=== PATIENT | female | born 1985 | race American Indian/Alaskan Native ===

== ENCOUNTER 2017-09-30 11:00 | Outpatient (CLI) | payer MEDICAID | END 2017-09-30 11:01 | disposition home or self-care (01) | LOC: SLR 11:00 | PROVIDERS: ATTEND Specialist | DX: G47.30 Sleep apnea, unspecified (principal) | CPT/HCPCS: G0399 ==

== ENCOUNTER 2018-10-19 11:00 | Outpatient (CLI) | payer MEDICAID | END 2018-10-19 11:01 | disposition home or self-care (01) | LOC: SLR 11:00 | PROVIDERS: ATTEND Otolaryngology | DX: G47.33 Obstructive sleep apnea (adult) (pediatric) (principal); R40.0 Somnolence; R06.83 Snoring | CPT/HCPCS: 95810 ==

== ENCOUNTER 2018-10-26 11:00 | Outpatient (CLI) | payer MEDICAID | END 2018-10-26 11:01 | disposition home or self-care (01) | LOC: SLR 11:00 | PROVIDERS: ATTEND Otolaryngology | DX: G47.31 Primary central sleep apnea (principal); G47.33 Obstructive sleep apnea (adult) (pediatric) | CPT/HCPCS: 95811 ==

== ENCOUNTER 2019-01-26 06:09 | Day surgery (SDC) | payer MEDICAID ==
[2019-01-26] MEDS ORDERED: NACL 0.9% 1000 ML 1,000 ML IV SCH (07:00)
--- NOTE | 2019-01-26 07:25 | Anesthesia Consultation ---
Anesthesia Consult and Med Hx Date of service: 01/26/19 - Airway Anesthetic Teeth Evaluation: Good ROM Head & Neck: Adequate Mental/Hyoid Distance: Adequate Mallampati Class: Class III Intubation Access Assessment: Possibly Difficult - Pre-Operative Health Status ASA Pre-Surgery Classification: ASA3 Proposed Anesthetic Plan: MAC - Pulmonary Hx Smoking: Yes (quit smoking 18') Hx Sleep Apnea: Yes (uses CPAP) - Cardiovascular System Hx Hypertension: Yes - Gastrointestinal Hx Gastroesophageal Reflux Disease: Yes - Other Systems Hx Obesity: Yes (BMI 65.6)
--- NOTE | 2019-01-26 07:26 | Anesthesia Day of Surgery ---
Anesthesia Day of Surgery - Day of Surgery Patient Examined: Yes Patient H&P Reviewed: Yes Patient is NPO: Yes
[2019-01-26] MEDS ORDERED: WATER FOR IRRIG STERILE ONE (07:28)
[2019-01-26] MEDS ORDERED: WATER FOR IRRIG STERILE IR ONE (07:28)
[2019-01-26] MEDS ORDERED: DIPRIVAN 10 MG/ML IV ONE (07:39)
[2019-01-26] MEDS ORDERED: XYLOCAINE 2% INFILTRATI ONE (07:40)
[2019-01-26 08:24] VITALS: BP 115/74
== END 2019-01-26 06:10 | disposition home or self-care (01) ==
LOC: GIO 06:09
PROVIDERS: ATTEND Specialist
DX: K29.70 Gastritis, unspecified, without bleeding (principal); K44.9 Diaphragmatic hernia without obstruction or gangrene; K30 Functional dyspepsia; E66.01 Morbid (severe) obesity due to excess calories; I10 Essential (primary) hypertension; G47.30 Sleep apnea, unspecified; K21.9 Gastro-esophageal reflux disease without esophagitis; F17.210 Nicotine dependence, cigarettes, uncomplicated; Z68.44 Body mass index [BMI] 60.0-69.9, adult; Z90.49 Acquired absence of other specified parts of digestive tract; Z98.84 Bariatric surgery status; Z88.0 Allergy status to penicillin; Z79.899 Other long term (current) drug therapy; Z98.890 Other specified postprocedural states; Z98.891 History of uterine scar from previous surgery
CPT/HCPCS: 43235; 81025; J2704; J7030

== ENCOUNTER 2019-03-09 05:52 | Inpatient (IN) | payer MEDICAID ==
--- NOTE | 2019-03-08 14:55 | Anesthesia Consultation ---
Anesthesia Consult and Med Hx Date of service: 03/08/19 - Airway Anesthetic Teeth Evaluation: Good ROM Head & Neck: Adequate Mental/Hyoid Distance: Adequate Mallampati Class: Class I Intubation Access Assessment: Probably Good - Pulmonary Exam CTA: Yes - Cardiac Exam Cardiac Exam: RRR - Pre-Operative Health Status ASA Pre-Surgery Classification: ASA3 Proposed Anesthetic Plan: General - Pulmonary Hx Smoking: Yes (former smoker quit 1yr) Hx Respiratory Symptoms: No Hx Sleep Apnea: Yes (compliant with CPAP) - Cardiovascular System Hx Hypertension: Yes Hx Heart Attack/AMI: No Hx Percutaneous Transluminal Coronary Angioplasty (PTCA): No Hx Cardia Arrhythmia: No - Central Nervous System CVA: No Hx Back Pain: Yes Hx Psychiatric Problems: No - Gastrointestinal Hx Gastroesophageal Reflux Disease: Yes (well controlled) - Endocrine Hx Renal Disease: No Hx Liver Disease: No Hx Insulin Dependent Diabetes: No Hx Non-Insulin Dependent Diabetes: No Hx Thyroid Disease: No - Other Systems Hx Alcohol Use: Yes (Occas) Hx Cancer: No Hx Obesity: Yes (BMI 68) - Additional Comments Anesthesia Medical History Comments: No hx anesthetic complications. Neg ST 03/2018.
[2019-03-09] MEDS ORDERED: CLEOCIN 600 MG/50 mL 600 MG/50 ML BAG IV NR (06:00)
[2019-03-09] MEDS ORDERED: NACL 0.9% IV SCH (06:00)
[2019-03-09] MEDS ORDERED: GENTAMICIN IV SCH ×2 (06:00)
[2019-03-09] MEDS ORDERED: FLAGYL 500 MG/100 ML 500 MG/100 ML BAG IV NR (06:00)
[2019-03-09] MEDS ORDERED: NACL BACTERIOSTATIC INFILTRATI ONE (06:43)
[2019-03-09] MEDS ORDERED: MARCAINE-EPI 0.5%-1:200,000 INFILTRATI ONE ×2 (06:58→07:47)
[2019-03-09] MEDS ORDERED: XYLOCAINE 1% 20 mL ONE (06:58)
[2019-03-09] MEDS: LACTATED RINGERS 1,000 ML IV SCH ×3 (07:00→21:13)
[2019-03-09] MEDS ORDERED: ZEMURON IV ONE ×2 (07:10)
[2019-03-09] MEDS ORDERED: DIPRIVAN 10 MG/ML IV ONE ×2 (07:10→07:11)
[2019-03-09] MEDS ORDERED: DILAUDID ONE (07:10)
[2019-03-09] MEDS ORDERED: XYLOCAINE MPF 2% ONE ×2 (07:10)
[2019-03-09] MEDS ORDERED: SUBLIMAZE ONE ×2 (07:11→09:48)
[2019-03-09] MEDS ORDERED: VERSED IV NR (07:13)
[2019-03-09] MEDS ORDERED: PEPCID IV NR (07:14)
[2019-03-09] MEDS ORDERED: BRIDION IV ONE ×2 (07:15)
--- NOTE | 2019-03-09 07:18 | Anesthesia Day of Surgery ---
Anesthesia Day of Surgery - Day of Surgery Patient Examined: Yes Patient H&P Reviewed: Yes Patient is NPO: Yes
[2019-03-09] MEDS ORDERED: ZOFRAN IV PRN ×2 (07:24→07:37)
[2019-03-09] MEDS ORDERED: NORCO PO PRN (07:37)
[2019-03-09] MEDS ORDERED: MORPHINE IV PRN (07:37)
[2019-03-09] MEDS ORDERED: REGLAN IV PRN (07:37)
[2019-03-09] MEDS ORDERED: APRESOLINE IV PRN (07:37)
[2019-03-09] MEDS ORDERED: NACL 0.9% IR ONE ×2 (07:47)
[2019-03-09] MEDS ORDERED: XYLOCAINE 1% 20 mL INFILTRATI ONE (07:47)
[2019-03-09] MEDS ORDERED: LOVENOX SUB-Q NR (08:00)
[2019-03-09] MEDS ORDERED: LEVAQUIN 500MG/100ML 500 MG/100 ML BAG IV NR (08:00)
[2019-03-09] MEDS ORDERED: TRANSDERM-SCOP TD SCH (08:00)
[2019-03-09] MEDS ORDERED: LACTATED RINGERS 1,000 ML IV SCH (08:00)
[2019-03-09] MEDS ORDERED: QUELICIN ONE (08:30)
[2019-03-09] MEDS ORDERED: DECADRON ONE (08:35)
[2019-03-09] MEDS ORDERED: PHENYLEPHRINE/NS Syringe 1,000 MCG/10 ML IV ONE (08:54)
[2019-03-09] MEDS ORDERED: BLOXIVERZ ONE (09:09)
[2019-03-09] MEDS ORDERED: ROBINUL ONE (09:09)
[2019-03-09] MEDS ORDERED: CLORPACTIN WCS-90 IR ONE (09:22)
[2019-03-09] MEDS: SUBLIMAZE IV PRN ×2 (10:08→10:17)
[2019-03-09] MEDS: MYLICON PO PRN ×2 (10:40→16:03)
[2019-03-09] MEDS ORDERED: MYLICON ONE (10:41)
--- NOTE | 2019-03-09 11:54 | Post Anesthesia Evaluation ---
- Post Anesthesia Evaluation Patient Participated: Yes Airway Patent: Yes Stable Respiratory Function: Yes Nausea/Vomiting: No Temp > 96.8F: Yes Pain Manageable: Yes Adequeate Hydration: Yes Anesthesia Complications: No
[2019-03-09] MEDS: TORADOL IV SCH ×3 (12:19→21:05)
--- NOTE | 2019-03-09 14:05 | Operative Report ---
SURGEON: Valdemar Mtz M.D. PHYSICAL SECURITY SPECIALIST: Karen Amado M.D. Fellow; Chai Whitten M.D., [facility]. PREOPERATIVE DIAGNOSES: Super morbid obesity, body mass index 70 kilograms per meter squared. POSTOPERATIVE DIAGNOSES: Super morbid obesity, body mass index 70 kilograms per meter squared. OPERATION: 1. Laparoscopic sleeve gastrectomy. 2. Laparoscopic hiatal hernia repair. 3. Lysis of adhesions. ANESTHESIA: General endotracheal anesthesia. COMPLICATIONS: None. BLEEDING: Less than 10 mL. SPECIMENS: Gastric remnant. INDICATIONS: The patient is a 34-year-old female with a history of super morbid obesity. She has undergone preoperative bariatric workup and presents for her planned operation. The risks, complications and alternatives were explained to the patient and informed consent was obtained. DESCRIPTION OF PROCEDURE: The patient was brought to the operating suite where she was placed in the supine position and underwent general endotracheal intubation. She received preoperative antibiotics and DVT prophylaxis. She was prepped and draped in the usual sterile fashion and then a timeout was called to ensure proper patient, indication and operation. Local analgesia was injected into the left upper quadrant with a small stab incision and insertion of a Veress needle. Insufflation pressures were achieved to 18 mmHg. Intraabdominal access was obtained via left lateral region of the abdomen with a 5 mm optical trocar. On intraabdominal view, there was no injury from the Veress needle. She had adhesions of the omentum to the falciform ligament mostly in the foregut region from her prior cholecystectomy. Under direct visualization, we were able to place an additional 5 mm ports in the right lateral and left lateral quadrant. Of note, we did have to use long trocars. The adhesions were taken down with the LigaSure device and then a 15 mm trocar was placed above the umbilicus under direct visualization. A subxiphoid 5-mm port was then placed and the patient was repositioned in steep reverse Trendelenburg after insertion of liver retractor. She had a very large floppy stomach along with a limited domain from her abdominal girth, so it was a difficult exposure. The angle of His was dissected free and a small esophageal fat pad was removed. She had a very small hiatal hernia that was dissected free, which revealed left and right marlys. After this, the greater curvature of the stomach was from the gastrocolic ligament using the LigaSure device to fully mobilize the stomach posteriorly as well as about 6 cm antegrade from the duodenum. Anesthesia placed a 40-Kyrgyz bougie for calibration and then a sleeve gastrectomy was then performed utilizing several staple loads. The insufflation pressures were decreased and the staple lines were cauterized after each fire load. After this, an anterior cruroplasty was done with interrupted 0 Ethibond suture. The gastric remnant was removed from the supraumbilical port site. I did have to widen this as she has quite large stomach in order for it to be removed from the intraabdominal cavity. The stomach did tear and open upon removal. A liter of normal saline was instilled into the left and right upper quadrant to help with postoperative gas pain and then the fascia of the midline port was closed with a #1 PDS in a [id number] fashion. The wound was irrigated thoroughly with Chlorapectin solution and then all the wounds were closed with 4-0 Monocryl. Sterile bandages were placed over top. Counts were correct. The patient was then extubated and left the operating room in stable condition. FINDINGS: A large stomach, small hiatal hernia and adhesions from her prior operation. JOB# [id number] RUSS/LENIN MORALES
[2019-03-09] MEDS: DILAUDID IV PRN (21:24)
[2019-03-10] MEDS: TORADOL IV SCH ×2 (05:27→08:59)
[2019-03-10 06:05] LABS: Basophils % (Auto) 0.1 % (0.0-1.8); Hematocrit 27.4 % (30.3-42.9); Lymphocytes # (Auto) 1.5 K/mm3 (1.2-5.4); Lymphocytes % (Auto) 9.4 % (13.4-35.0); Mean Corpuscular HGB Conc 33 % (30-34); Mean Corpuscular Volume 86 fl (79-97); Monocytes # (Auto) 1.3 K/mm3 (0.0-0.8); Platelet Count 329 K/mm3 (140-440); Red Blood Count 3.19 M/mm3 (3.65-5.03); Red Cell Distribution Width 14.7 % (13.2-15.2)
[2019-03-10 06:22] LABS: BUN/Creatinine Ratio 11; Blood Urea Nitrogen 9 mg/dL (7-17); Calcium 8.9 mg/dL (8.4-10.2); Hemolysis Index 1
[2019-03-10] MEDS: DILAUDID IV PRN (06:29)
--- NOTE | 2019-03-10 07:31 | Discharge Summary ---
Providers - Providers Date of Admission: 03/09/19 07:37 Date of discharge: 03/10/19 Attending physician: SUPA MTZ Primary care physician: JIA MILLER Hospitalization Reason for admission: postop Condition: Good Procedures: 03/09/19: Laparoscopic sleeve gastrectomy Hospital course: 34F MO admitted after her operation for routine postop care. She was managed on the general surgical floor. She had no major issues. She ambulated, tolerated a CLD, pain controlled and was dc home POD1 after instructions. Disposition: DC-01 TO HOME OR SELFCARE Core Measure Documentation - Palliative Care Palliative Care/ Comfort Measures: Not Applicable - Core Measures Any of the following diagnoses?: none - VTE Discharge Requirements Deep Vein Thrombosis/Pulmonary Embolism Present on Admission: No - Acute [place] Discharge Requirements Aspirin at discharge: No Reason for no aspirin on DC: Surgical contraindication - Heart Failure Discharge Requirements XANDER/ARB for LVSD if EF <40%: Not Applicable - Stroke Discharge Requirements Statin for LDL = or >70 mg/dl on DC: Not Applicable Exam - Physical Exam Narrative exam: Gen: AAO, NAD Heart: RRR Lungs: CTAB Abd: super MO, soft, NT, ND. Bandages c/d/i. Ext: No LE Edema - Constitutional Vitals: Temp Pulse Resp BP Pulse Ox 98.8 F 106 H 20 129/79 92 03/10/19 04:23 03/10/19 04:23 03/10/19 04:23 03/10/19 04:23 03/10/19 04:23 Plan Diet: clear liquids Wound: keep clean and dry Special Instructions: no heavy lifting Additional Instructions: Iam Mtz as scheduled Follow up with: JIA MILLER MD [Primary Care Provider] - 7 Days
[2019-03-10 08:23] VITALS: BP 144/80
[2019-03-10] MEDS: MYLICON PO PRN (08:59)
[2019-03-10] MEDS ORDERED: LOVENOX SUB-Q SCH (10:00)
== END 2019-03-10 12:15 | disposition home or self-care (01) | DRG 621 ==
LOC: OR 05:52 → 3B-SURG 07:37
PROVIDERS: ADMIT Specialist; ATTEND Specialist
PROC: 0DB64Z3 Excision of Stomach, Percutaneous Endoscopic Approach, Vertical (ICD-10-PCS; principal; 2019-03-09)
PROC: 0BQT4ZZ Repair Diaphragm, Percutaneous Endoscopic Approach (ICD-10-PCS; 2019-03-09)
DX: E66.01 Morbid (severe) obesity due to excess calories (principal); G47.33 Obstructive sleep apnea (adult) (pediatric); K30 Functional dyspepsia; K44.9 Diaphragmatic hernia without obstruction or gangrene; K66.0 Peritoneal adhesions (postprocedural) (postinfection); Z90.49 Acquired absence of other specified parts of digestive tract; Z87.891 Personal history of nicotine dependence; Z88.0 Allergy status to penicillin; Z80.9 Family history of malignant neoplasm, unspecified; Z68.45 Body mass index [BMI] 70 or greater, adult
CPT/HCPCS: 36415; 80048; 81025; 85025; 88307; 94760; G0378; A4217; J0330; J1100; J1170; J1580; J1650; J1885; J2250; J2370; J2405; J2704; J2710; J2765; J3010; J7120

== ENCOUNTER 2019-05-02 18:43 | Emergency (ER) | payer MEDICAID ==
--- NOTE | 2019-05-02 19:04 | Event Note ---
ED Screening Note Date of service: 05/02/19 Time: 19:00 ED Screening Note: 34 y o female presents with constant upper back right thoracic pain causing right arm pain This initial assessment/diagnostic orders/clinical plan/treatment(s) is/are subject to change based on patients health status, clinical progression and re- assessment by fellow clinical providers in the ED. Further treatment and workup at subsequent clinical providers discretion. Patient/guardian urged not to elope from the ED as their condition may be serious if not clinically assessed and managed. Initial orders include: ct cerv thoracic
--- NOTE | 2019-05-02 21:05 | Cat Scan Report ---
CT thoracic SPINE: 05/02/2019 INDICATION / CLINICAL INFORMATION: Back pain. COMPARISON: None available. FINDINGS: CT images of the thoracic spine were obtained. Images are evaluated in the axial, coronal, and sagit alejandro plane. There is no evidence of acute abnormality. Degenerative disc space narrowing and osteophyte formation is present at all levels. Thoracic spine. There is no evidence of thoracic canal narrowing. Overall resolution is somewhat limited due to body habitus. Soft tissue details in the neural foramin a and canal are largely obscured. LEVEL BY LEVEL ANALYSIS: . PARASPINAL STRUCTURES: Unremarkable. IMPRESSION: No acute abnormality. mild degenerative changes. All CT scans at this location are performed using dose reduction to ALARA by means of automated expos ure control. Signer Name: Juanjose Santos MD Signed: 05/02/2019 9:00 PM Workstation Name: [id number]
[2019-05-02] MEDS ORDERED: TORADOL IM ONE (21:08)
[2019-05-02] MEDS ORDERED: DECADRON IM ONE (21:08)
--- NOTE | 2019-05-02 21:09 | Cat Scan Report ---
CT CERVICAL SPINE: 05/02/2019 INDICATION / CLINICAL INFORMATION: pain. COMPARISON: None available. FINDINGS: CT images of the cervical spine were obtained. Images are evaluated in the axial, coronal, and sagit alejandro planes. There is no evidence of acute traumatic injury. Vertebral body alignment is well preserved. Menisci some minimal degenerative disc change at the C4-5 and C5-6 levels. There is no gross evidence of soft tissue abnormality in the neural foramina or canal, although this is limited for evaluation of obstruction. Depending on details of the clinical circumstances, additio nal information may be available for use of MRI or CT myelography. CRANIOCERVICAL JUNCTION: Unremarkable. PARASPINAL STRUCTURES: Unremarkable. IMPRESSION: No acute abnormality. All CT scans at this location are performed using dose reduction to ALARA by means of automated expos ure control. Signer Name: Juanjose Santos MD Signed: 05/02/2019 9:05 PM Workstation Name: [id number]
--- NOTE | 2019-05-02 22:11 | Emergency Department Report ---
ED Extremity Problem HPI - General Chief complaint: Extremity Problem,Nontraumatic Stated complaint: RT SIDE NUMB/SHARP PAIN Time Seen by Provider: 05/02/19 18:59 Source: patient Mode of arrival: Ambulatory Limitations: No Limitations - History of Present Illness MD Complaint: extremity pain (Posterior right shoulder pain; posterior upper thoracic pain), other (Upper back pain) -: Sudden, days(s) (3) Location: right, upper extremity (posterior shoulder) History of Same: No -: Yes arthralgia, No associated dyspnea, No associated chest pain Radiation: none Severity scale (0 -10): 7 Quality: aching, sharp Consistency: constant Improves with: nothing Worsens with: weight bearing, walking, palpation Associated Symptoms: denies other symptoms, arthralgias. denies: chest pain, shortness of breath, fever, myalgias, rash - Related Data Home Medications Medication Instructions Recorded Confirmed Last Taken tiZANidine [Zanaflex 4mg TAB] 4 mg PO Q8H PRN 03/05/19 03/09/19 2 Weeks Ago ~02/23/19 Valtrex 1 tab PO PRN 03/09/19 03/09/19 1 Month Ago ~02/07/19 Previous Rx's Medication Instructions Recorded Last Taken Type Naproxen [Naprosyn] 500 mg PO Q12H PRN #20 tablet 05/02/19 Unknown Rx predniSONE [Deltasone] 40 mg PO QDAY #10 tab 05/02/19 Unknown Rx tiZANidine [Zanaflex 4mg TAB] 4 mg PO Q8H PRN #15 tablet 05/02/19 Unknown Rx traMADol [Ultram] 50 mg PO Q6HR PRN #12 tablet 05/02/19 Unknown Rx Allergies Allergy/AdvReac Type Severity Reaction Status Date / Time Penicillins Allergy Unknown Verified 03/05/19 17:44 ED Review of Systems ROS: Stated complaint: RT SIDE NUMB/SHARP PAIN Other details as noted in HPI Constitutional: denies: chills, fever Eyes: denies: eye pain, eye discharge, vision change ENT: denies: ear pain, throat pain Respiratory: denies: cough, shortness of breath, wheezing Cardiovascular: denies: chest pain, palpitations Endocrine: no symptoms reported Gastrointestinal: denies: abdominal pain, nausea, diarrhea Genitourinary: denies: urgency, dysuria, discharge Musculoskeletal: back pain (Upper posterior thoracic pain), arthralgia (posterior upper thoracic pain; posterior right shoulder pain), myalgia. denies: joint swelling Skin: denies: rash, lesions Neurological: denies: headache, weakness, paresthesias Psychiatric: denies: anxiety, depression Hematological/Lymphatic: denies: easy bleeding, easy bruising ED Past Medical Hx - Past Medical History Previous Medical History?: No Hx Hypertension: Yes Hx Congestive Heart Failure: No Hx Diabetes: No Hx GERD: Yes Hx Asthma: No Hx COPD: No - Surgical History Hx Cholecystectomy: Yes (LAP [facility]) Additional Surgical History: Gastric sleeve 02/2016 - Social History Smoking Status: Never Smoker Substance Use Type: None - Medications Home Medications: Home Medications Medication Instructions Recorded Confirmed Last Taken Type tiZANidine [Zanaflex 4mg TAB] 4 mg PO Q8H PRN 03/05/19 03/09/19 2 Weeks Ago History ~02/23/19 Valtrex 1 tab PO PRN 03/09/19 03/09/19 1 Month Ago History ~02/07/19 Naproxen [Naprosyn] 500 mg PO Q12H PRN #20 tablet 05/02/19 Unknown Rx predniSONE [Deltasone] 40 mg PO QDAY #10 tab 05/02/19 Unknown Rx tiZANidine [Zanaflex 4mg TAB] 4 mg PO Q8H PRN #15 tablet 05/02/19 Unknown Rx traMADol [Ultram] 50 mg PO Q6HR PRN #12 tablet 05/02/19 Unknown Rx ED Physical Exam - General Limitations: No Limitations General appearance: alert, in no apparent distress - Head Head exam: Present: atraumatic, normocephalic, normal inspection - Eye Eye exam: Present: normal appearance, PERRL, EOMI Pupils: Present: normal accommodation - ENT ENT exam: Present: normal exam, normal orophraynx, mucous membranes moist, TM's normal bilaterally, normal external ear exam - Neck Neck exam: Present: normal inspection, full ROM. Absent: tenderness, meningismus, lymphadenopathy, thyromegaly - Respiratory Respiratory exam: Present: normal lung sounds bilaterally. Absent: respiratory distress, wheezes, rales, chest wall tenderness, accessory muscle use, prolonged expiratory - Cardiovascular Cardiovascular Exam: Present: regular rate, normal rhythm, normal heart sounds. Absent: systolic murmur, diastolic murmur, rubs, gallop - GI/Abdominal GI/Abdominal exam: Present: soft, normal bowel sounds. Absent: tenderness, guarding, rebound, hyperactive bowel sounds, hypoactive bowel sounds, organomegaly, mass - Extremities Exam Extremities exam: Present: normal inspection, tenderness (Palpable posterior right shoulder tenderness worse with abduction and rotation), normal capillary refill. Absent: full ROM (limited ROM due to pain on right shoulder), pedal edema, joint swelling, calf tenderness - Back Exam Back exam: Present: normal inspection, tenderness (Palpable moderate posterior right upper thoracic paraspinal tenderness), muscle spasm. Absent: CVA tenderness (L), paraspinal tenderness - Neurological Exam Neurological exam: Present: alert, oriented X3, CN II-XII intact, normal gait, reflexes normal - Psychiatric Psychiatric exam: Present: normal affect, normal mood - Skin Skin exam: Present: warm, dry, intact, normal color. Absent: rash ED Course Vital Signs 05/02/19 18:56 Temperature 98.3 F Pulse Rate 97 H Respiratory 18 Rate Blood Pressure 127/76 O2 Sat by Pulse 99 Oximetry Critical care attestation.: If time is entered above; I have spent that time in minutes in the direct care of this critically ill patient, excluding procedure time. ED Disposition Clinical Impression: Right shoulder tendonitis, Spasm of thoracic back muscle Muscle strain of right shoulder Qualifiers: Encounter type: initial encounter Qualified Code(s): S46.911A - Strain of unspecified muscle, fascia and tendon at shoulder and upper arm level, right arm, initial encounter Disposition: - TO HOME OR SELFCARE Is pt being admited?: No Does the pt Need Aspirin: No Condition: Stable Instructions: Muscle Strain (ED), Tendinitis (ED), Muscle Spasm (ED), Arthralgia (ED) Additional Instructions: Take medications with food, drink plenty of fluids and follow-up with your primary care physician in 7-10 days for reevaluation. Return to the ED immediately if symptoms get worse. Prescriptions: predniSONE [Deltasone] 40 mg PO QDAY #10 tab Naproxen [Naprosyn] 500 mg PO Q12H PRN #20 tablet PRN Reason: Pain , Severe (7-10) traMADol [Ultram] 50 mg PO Q6HR PRN #12 tablet PRN Reason: Pain tiZANidine [Zanaflex 4mg TAB] 4 mg PO Q8H PRN #15 tablet PRN Reason: Muscle Spasm Referrals: [facility] [Outside] - 3-5 Days Time of Disposition: 22:13 Print Language: FRENCH
[2019-05-02 22:58] VITALS: BP 128/87
== END 2019-05-02 22:59 | disposition home or self-care (01) ==
LOC: ED 18:43
DX: S46.911A Strain of unspecified muscle, fascia and tendon at shoulder and upper arm level, right arm, initial encounter (principal); M75.91 Shoulder lesion, unspecified, right shoulder; M62.830 Muscle spasm of back; M54.6 Pain in thoracic spine; I10 Essential (primary) hypertension; K21.9 Gastro-esophageal reflux disease without esophagitis; Z90.49 Acquired absence of other specified parts of digestive tract; Z79.899 Other long term (current) drug therapy; Z88.0 Allergy status to penicillin; X58.XXXA Exposure to other specified factors, initial encounter; Y93.89 Activity, other specified; Y92.89 Other specified places as the place of occurrence of the external cause; Y99.8 Other external cause status
CPT/HCPCS: 72125; 72128; 96372; 99283; J1100; J1885